=== PATIENT | female | born 1970 | race Caucasian/White ===

== ENCOUNTER 2016-09-16 21:00 | Emergency (ER) | payer SELFPAY ==
[~2016-09-16 21:00] MED LIST: ASPIR 8181 M1 PO; BABY ASPIRIN81 MG; BIOTIN PO; CALCIUM WITH M1 EACH PO; CORAL CALCIUM; D MANNOSE PO; GENTLE IRON PO; IRON325 ( 65; LEVOXYL125 MCG; MEDROL4 MG/DOSE- PO; OMNICEF300 MG PO; PRENATAL VITAMI1 TAB; SYNTHROID112 MC1 PO; VITAMIN A10000 UNI2 PO; VITAMIN C500 M3 PO; VITAMIN D3 PO; [UNRECOGNIZED DRUG - OTHER] PO; [UNRECOGNIZED DRUG - OTHER] PO; [UNRECOGNIZED DRUG - OTHER] PO; [UNRECOGNIZED DRUG - OTHER] PO
[2016-09-16] MEDS ORDERED: PROBIOTIC1 EA10 (21:24)
[2016-09-16] MEDS ORDERED: AMOXICILLIN875 M1 PO (21:35)
[2016-09-16] MEDS ORDERED: ULTRAM50 M1 PO (21:35)
== END 2016-09-16 21:52 ==
LOC: EDMED 21:00
DX: J02.0 Streptococcal pharyngitis (principal); E07.9 Disorder of thyroid, unspecified; Z79.82 Long term (current) use of aspirin; Z79.890 Hormone replacement therapy